=== PATIENT | female | born 1970 | race Caucasian/White ===

== ENCOUNTER 2020-09-19 14:41 | Emergency (ER) | payer BC ==
[~2020-09-19] VITALS: Ht 162.6 cm; Wt 145.1 kg
--- NOTE | 2020-09-19 14:55 | NUR ---
PT BIBRA FROM HOME C/O R HIP, R THIGH PAIN X 5 DAYS. DENIES ANY RECENT TRUAMA. STATES TAKING TRAMADOL W/ MINIMAL RELIEF. STABLE VITALS.
[2020-09-19] MEDS ORDERED: HYDROCODONE/APAP 5/325MG TABLET PO ONE (15:00)
[2020-09-19] MEDS ORDERED: KETOROLAC TROMETHAMINE INJ 60 MG/2 ML VIAL IM ONE (15:00)
--- NOTE | 2020-09-19 15:00 | NUR ---
DR CARVALHO AT BEDSIDE FOR EVAL.
[2020-09-19] MEDS ORDERED: HYDROCODONE/APAP 5/325MG TABLET ONE (15:07)
[2020-09-19] MEDS ORDERED: KETOROLAC TROMETHAMINE INJ 30 MG/ML VIAL ONE (15:07)
--- NOTE | 2020-09-19 15:22 | NUR ---
PT TO RADIOLOGY FOR LUMBAR AND HIP XRAY.
[2020-09-19] MEDS ORDERED: HYDR-4303 PO (16:29)
[2020-09-19 17:08] VITALS: BP 130/76
--- NOTE | 2020-09-19 17:08 | NUR ---
Patient discharged to home in stable condition. Written and verbal after care instructions given. Patient verbalizes understanding of instruction.
== END 2020-09-19 17:10 | disposition home or self-care (01) ==
LOC: ER 15:13
DX: M51.36 Other intervertebral disc degeneration, lumbar region (principal); I10 Essential (primary) hypertension; Z60.2 Problems related to living alone
CPT/HCPCS: 72110; 73502; 96372; 99284; J1885

== ENCOUNTER 2024-05-03 22:42 | Emergency (ER) | payer BC ==
[~2024-05-03] VITALS: Ht 162.6 cm; Wt 145.1 kg
[~2024-05-03 22:42] MED LIST: HYDR-4303 PO
[2024-05-04] MEDS ORDERED: CLIN300C12 PO (00:36)
[2024-05-04 01:01] VITALS: BP 137/93; TEMP 97.8; O2SAT 95
== END 2024-05-04 01:02 | disposition home or self-care (01) ==
LOC: ER 22:59
DX: S90.32XA Contusion of left foot, initial encounter (principal); L03.116 Cellulitis of left lower limb; M79.672 Pain in left foot; I10 Essential (primary) hypertension; Z60.2 Problems related to living alone; X58.XXXA Exposure to other specified factors, initial encounter; Y93.89 Activity, other specified; Y92.89 Other specified places as the place of occurrence of the external cause; Y99.8 Other external cause status
CPT/HCPCS: 73630-TC